=== PATIENT | female | born 1980 | race African-American/Black ===

== ENCOUNTER 2017-11-23 12:47 | Emergency (ER) | payer MEDICAID ==
[~2017-11-23] VITALS: Ht 167.6 cm; Wt 123.0 kg
[2017-11-23 13:09] VITALS: BP 135/98
[2017-11-23] MEDS ORDERED: TETANUS, DIPHTHERIA, PERTUSSIS VAC/PF 0.5ML (>7YR OLD) IM ONE (15:15)
== END 2017-11-23 15:52 | disposition home or self-care (01) ==
LOC: ER 13:36
DX: S02.5XXA Fracture of tooth (traumatic), initial encounter for closed fracture (principal); K02.9 Dental caries, unspecified; I10 Essential (primary) hypertension; E11.9 Type 2 diabetes mellitus without complications; X58.XXXA Exposure to other specified factors, initial encounter; Y93.89 Activity, other specified; Y92.89 Other specified places as the place of occurrence of the external cause; Y99.8 Other external cause status; Z23 Encounter for immunization
CPT/HCPCS: 90471; 90715; 99283

== ENCOUNTER 2018-03-31 12:19 | Emergency (ER) | payer MEDICAID ==
[~2018-03-31] VITALS: Ht 170.2 cm; Wt 136.7 kg
[2018-03-31 14:17] LABS: BASOPHILS % 0.6 % (0.0-2.0); EOSINOPHILS % 4.3 % (0.0-5.0); HEMOGLOBIN. 12.3 g/dL (12.0-16.0); LYMPHOCYTES % 30.8 % (20.0-50.0); MEAN CORPUSCULAR HEMOGLOBIN 26.5 pg (28.0-32.0); MEAN CORPUSCULAR VOLUME 79.4 fL (81.0-99.0); MEAN PLATELET VOLUME 7.9 fl (7.4-10.4); MONOCYTES % 8.8 % (2.0-8.0); NEUTROPHILS % 55.5 % (40.0-76.0); PLATELET 230 x1000/uL (130-400); RED BLOOD CELL COUNT 4.66 mill/uL (4.2-5.4)
[2018-03-31 14:23] LABS: CHLORIDE 105 mEq/L (98-107)
[2018-03-31 14:29] LABS: HCG SCREEN INDETERMINATE
[2018-03-31 14:35] VITALS: BP 107/68
[2018-03-31 15:15] LABS: CLARITY URINE CLOUDY (CLEAR); COLOR URINE YELLOW (YELLOW); KETONES URINE NEGATIVE (NEGATIVE); LEUKOCYTE ESTERASE URINE 1+ (NEGATIVE); NITRITE URINE NEGATIVE (NEGATIVE); OCCULT BLOOD URINE 3+ (NEGATIVE); PROTEIN URINE TRACE (NEGATIVE); SPECIFIC GRAVITY URINE 1.022 (1.005-1.030)
== END 2018-03-31 16:23 | disposition home or self-care (01) ==
LOC: ER 12:19
DX: O20.0 Threatened abortion (principal); E11.9 Type 2 diabetes mellitus without complications; I10 Essential (primary) hypertension; Z91.018 Allergy to other foods; Z3A.00 Weeks of gestation of pregnancy not specified
CPT/HCPCS: 36415; 76830; 76856; 80053; 81003; 83690; 84702; 84703; 85025; 85610; 99285; Z7610

== ENCOUNTER 2018-04-03 15:52 | Emergency (ER) | payer MEDICAID ==
[~2018-04-03] VITALS: Ht 167.6 cm; Wt 113.0 kg
[2018-04-03 17:25] LABS: BASOPHILS % 0.4 % (0.0-2.0); CHLORIDE 106 mEq/L (98-107); EOSINOPHILS % 3.9 % (0.0-5.0); HEMATOCRIT. 36.6 % (36.0-48.0); HEMOGLOBIN. 12.1 g/dL (12.0-16.0); LYMPHOCYTES % 32.3 % (20.0-50.0); MEAN CORPUSCULAR HEMOGLOBIN 26.4 pg (28.0-32.0); MEAN CORPUSCULAR VOLUME 79.7 fL (81.0-99.0); MEAN PLATELET VOLUME 8.1 fl (7.4-10.4); NEUTROPHILS % 56.4 % (40.0-76.0); PLATELET 241 x1000/uL (130-400); RED BLOOD CELL COUNT 4.59 mill/uL (4.2-5.4); RED CELL DISTRIBUTION WIDTH 15.3 % (11.6-14.6)
[2018-04-03 17:35] LABS: B-HCG QUANTITATIVE 10 mIU/mL (<3)
[2018-04-03 19:47] VITALS: BP 148/94
== END 2018-04-03 19:49 | disposition home or self-care (01) ==
LOC: ER 17:14
DX: O03.9 Complete or unspecified spontaneous abortion without complication (principal)
CPT/HCPCS: 36415; 76801; 80048; 84702; 85025; 99285

== ENCOUNTER 2019-03-13 04:22 | Emergency (ER) | payer MEDICAID ==
[~2019-03-13] VITALS: Ht 167.6 cm; Wt 141.0 kg
[2019-03-13] MEDS ORDERED: KETOROLAC 30MG/ML VIAL IV STA (05:30)
[2019-03-13] MEDS ORDERED: SODIUM CHLORIDE 0.9% 1,000 ML IV ONE (05:30)
[2019-03-13] MEDS ORDERED: ONDANSETRON HCL 4MG/2ML INJ IV STA (05:30)
[2019-03-13 07:26] VITALS: BP 108/62
== END 2019-03-13 07:58 | disposition home or self-care (01) ==
LOC: ER 04:22
DX: R51 Headache (principal); E11.9 Type 2 diabetes mellitus without complications; I10 Essential (primary) hypertension; Z91.018 Allergy to other foods
CPT/HCPCS: 96374; 96375; 99283; J1885; J2405; J7030

== ENCOUNTER 2019-03-20 15:38 | Emergency (ER) | payer MEDICAID ==
[~2019-03-20] VITALS: Ht 167.6 cm; Wt 141.0 kg
[2019-03-20] MEDS ORDERED: KETOROLAC 30MG/ML VIAL IM ONE (19:30)
[2019-03-20 22:45] VITALS: BP 128/80
== END 2019-03-20 22:45 | disposition home or self-care (01) ==
LOC: ER 15:38
DX: M79.605 Pain in left leg (principal); E11.9 Type 2 diabetes mellitus without complications; I10 Essential (primary) hypertension; M54.30 Sciatica, unspecified side; Z91.018 Allergy to other foods
CPT/HCPCS: 93971; 96372; 99284; J1885

== ENCOUNTER 2021-03-10 16:35 | Emergency (ER) | payer MEDICAID ==
[~2021-03-10] VITALS: Ht 167.6 cm; Wt 74.0 kg
[2021-03-10 18:43] LABS: BASOPHILS % 1.1 % (0.0-2.0); EOSINOPHILS % 5.4 % (0.0-5.0); HEMATOCRIT. 26.5 % (36.0-48.0); HEMOGLOBIN. 8.6 g/dL (12.0-16.0); LYMPHOCYTES % 33.5 % (20.0-50.0); MEAN CORPUSCULAR HEMOGLOBIN 24.3 pg (28.0-32.0); MEAN PLATELET VOLUME 7.4 fl (7.4-10.4); MONOCYTES % 6.3 % (2.0-8.0); NEUTROPHILS % 53.7 % (40.0-76.0); PLATELET 331 x1000/uL (130-400); RED BLOOD CELL COUNT 3.54 mill/uL (4.2-5.4); RED CELL DISTRIBUTION WIDTH 20.7 % (11.6-14.6)
[2021-03-10 18:45] LABS: CHLORIDE 107 mEq/L (98-107)
[2021-03-10 19:00] LABS: ETHANOL BLOOD < 10 mg/dL
[2021-03-10 19:21] LABS: CLARITY URINE CLEAR (CLEAR); COLOR URINE YELLOW (YELLOW); KETONES URINE NEGATIVE (NEGATIVE); LEUKOCYTE ESTERASE URINE NEGATIVE (NEGATIVE); NITRITE URINE NEGATIVE (NEGATIVE); OCCULT BLOOD URINE 3+ (NEGATIVE); PH URINE 5.5 (4.5-8.0); PROTEIN URINE 1+ (NEGATIVE); SPECIFIC GRAVITY URINE 1.012 (1.005-1.030); UROBILINOGEN URINE 0.2 E.U./dL (0.2-1.0)
[2021-03-10 19:31] LABS: *BARBITURATES SCREEN URINE NEGATIVE (NEGATIVE); *BENZODIAZEPINES SCREEN URINE NEGATIVE (NEGATIVE); CANNABINOID URINE SCREEN NEGATIVE (NEGATIVE); METHADONE URINE SCREEN NEGATIVE (NEGATIVE); OPIATES URINE SCREEN NEGATIVE (NEGATIVE); PHENCYCLIDINE URINE SCREEN NEGATIVE (NEGATIVE)
[2021-03-10 19:32] LABS: *COCAINE SCREEN URINE NEGATIVE (NEGATIVE)
[2021-03-10 19:37] LABS: *AMPHETAMINES SCREEN URINE PRESUMTIVE POSITIVE (NEGATIVE)
[2021-03-11 03:58] VITALS: BP 146/89
== END 2021-03-11 03:58 | disposition home or self-care (01) ==
LOC: ER 16:35
DX: T43.621A Poisoning by amphetamines, accidental (unintentional), initial encounter (principal); R55 Syncope and collapse; I10 Essential (primary) hypertension; E11.9 Type 2 diabetes mellitus without complications; Z87.19 Personal history of other diseases of the digestive system; Z88.6 Allergy status to analgesic agent; Z91.018 Allergy to other foods; Y92.89 Other specified places as the place of occurrence of the external cause
CPT/HCPCS: 36415; 71045; 80053; 80305; 80320; 81003; 83880; 84484; 85025; 93005; 99285; G0480

== ENCOUNTER 2021-10-04 17:11 | Emergency (ER) | payer MEDICAID ==
[~2021-10-04] VITALS: Ht 160 cm; Wt 59.0 kg
[2021-10-04 20:29] LABS: BASOPHILS % 1.4 % (0.0-2.0); EOSINOPHILS % 4.6 % (0.0-5.0); HEMATOCRIT. 26.9 % (36.0-48.0); HEMOGLOBIN. 8.6 g/dL (12.0-16.0); LYMPHOCYTES % 30.4 % (20.0-50.0); MEAN CORPUSCULAR HEMOGLOBIN 23.2 pg (28.0-32.0); MEAN CORPUSCULAR VOLUME 72.9 fL (81.0-99.0); MONOCYTES % 4.1 % (2.0-8.0); NEUTROPHILS % 59.5 % (40.0-76.0); PLATELET 517 x1000/uL (130-400); RED BLOOD CELL COUNT 3.69 mill/uL (4.2-5.4); RED CELL DISTRIBUTION WIDTH 18.3 % (11.6-14.6)
[2021-10-04 20:35] LABS: CHLORIDE 95 mEq/L (98-107)
[2021-10-04] MEDS ORDERED: DIPHENHYDRAMINE 50MG/ML VIAL IV ONE (21:30)
[2021-10-04 22:47] LABS: CANNABINOID URINE SCREEN NEGATIVE (NEGATIVE); METHADONE URINE SCREEN NEGATIVE (NEGATIVE); OPIATES URINE SCREEN NEGATIVE (NEGATIVE); PHENCYCLIDINE URINE SCREEN NEGATIVE (NEGATIVE)
[2021-10-04 22:48] LABS: *BARBITURATES SCREEN URINE NEGATIVE (NEGATIVE); *BENZODIAZEPINES SCREEN URINE NEGATIVE (NEGATIVE); *COCAINE SCREEN URINE NEGATIVE (NEGATIVE)
[2021-10-04 22:56] LABS: *AMPHETAMINES SCREEN URINE PRESUMTIVE POSITIVE (NEGATIVE)
[2021-10-04] MEDS ORDERED: DIPH25TA62 MT (23:50)
[2021-10-05 03:18] VITALS: BP 121/77
== END 2021-10-05 04:55 | disposition home or self-care (01) ==
LOC: ER 17:11
DX: F15.10 Other stimulant abuse, uncomplicated (principal); F16.10 Hallucinogen abuse, uncomplicated; R20.2 Paresthesia of skin; N28.9 Disorder of kidney and ureter, unspecified; E11.9 Type 2 diabetes mellitus without complications; I10 Essential (primary) hypertension; F17.210 Nicotine dependence, cigarettes, uncomplicated; G62.9 Polyneuropathy, unspecified; Z88.6 Allergy status to analgesic agent; Z91.018 Allergy to other foods
CPT/HCPCS: 36415; 71045; 80053; 80305; 83880; 84484; 85025; 93005; 96374; 99285; J1200